=== PATIENT | male | born 1955 | race Caucasian/White ===

== ENCOUNTER 2020-05-14 13:58 | Emergency (ER) | payer OTHER ==
[2020-05-14 14:13] VITALS: BP 173/92; PULSE 78; O2SAT 97
[2020-05-14] MEDS ORDERED: ANTIVERT 25 MG PO ONE (14:47)
[2020-05-14] MEDS ORDERED: ZOFRAN ODT 4 MG PO ONE (14:47)
[2020-05-14] MEDS ORDERED: ANTIVERT 25 MG ONE (14:53)
--- NOTE | 2020-05-14 14:53 | ERPHSYRPT ---
- History of Present Illness Time Seen by Provider: 05/14/20 14:30 Patient Subjective Stated Complaint: Dizziness Triage Nursing Assessment: Patient ambulated back to ED and transferred self to chair. Patient feels better sitting in bedside chair. Patient A+O X 3. Patient's skin pink, warm and dry. Patient states he has a sinus infection and feels like it has went into his ears. Patient states he is dizzy. Patient states is nauseated and did take a dramanine, but vomited it up. Patient denies pain or discomfort. Physician History: 64 years old male with history of recurrent sinus infections with multiple surgeries in the past presented in the ER with sinus congestion and pressure for the last 5 days with progressive worsening. Patient reports it feels like he has bilateral ear pressure is now, feels stopped up and since morning he is feeling dizziness whenever he tries to get up/walk. Patient described this as a spinning sensation with movements of his head and it takes a while after standing still it goes away. Patient reports having similar symptoms 3-4 times in 1 year time which initially starts with sinusitis followed by ear pressure and dizziness. Denies any headache, visual symptoms, difficulty speech, numbness tingling or focal weakness. Denies any chest pain palpitations, shortness of breath, cough fever or chills. Does have postnasal drip. Patient took [id number] dizziness medication which made him more nauseated. Timing/Duration: day(s) (5), intermittent, worse Cough Quality/Degree: no cough Possible Cause: occasional episodes Modifying Factors: Improves With: activity, lying down, rest Associated Symptoms: dizziness, earache, facial pain, nasal congestion, nasal drainage, sinus infection, No fever, No chills, No chest pain/soreness, No cough, No headache, No lightheadedness, No muscle aches, No shortness of breath, No sore throat, No wheezing Allergies/Adverse Reactions: morphine Allergy (Verified 05/14/20 14:04) Patient states Hypotension Hx Influenza Vaccination/Date Given: No Hx Pneumococcal Vaccination/Date Given: No Immunizations Up to Date: Yes Travel Risk - International Travel Have you traveled outside of the country in past 3 weeks: No - Coronavirus Screening Close contact with a COVID-19 positive Pt in past 14-21 Days: No - Review of Systems Constitutional: No Symptoms Eyes: No Symptoms Ears, Nose, & Throat: Ear Pain, Nose Congestion, Sinus Drainage Respiratory: No Symptoms Cardiac: No Symptoms Abdominal/Gastrointestinal: Nausea Genitourinary Symptoms: No Symptoms Musculoskeletal: No Symptoms Neurological: Dizziness Psychological: No Symptoms Endocrine: No Symptoms Hematologic/Lymphatic: No Symptoms Immunological/Allergic: No Symptoms - Past Medical History Pertinent Past Medical History: Yes Neurological History: No Pertinent History ENT History: No Pertinent History Cardiac History: High Cholesterol, Hypertension, Myocardial Infarction (ND) Respiratory History: No Pertinent History Endocrine Medical History: No Pertinent History Musculoskeletal History: Arthritis GI Medical History: Ulcer History: No Pertinent History Psycho-Social History: No Pertinent History Male Reproductive Disorders: No Pertinent History - Past Surgical History Past Surgical History: Yes Neuro Surgical History: No Pertinent History Cardiac: No Pertinent History Respiratory: No Pertinent History Gastrointestinal: Hernia Repair Genitourinary: No Pertinent History Musculoskeletal: Orthopedic Surgery Male Surgical History: No Pertinent History Other Surgical History: Right Knee, Left wrist, Neck surgery, Sinus surgery - Social History Smoking Status: Never smoker Exposure to second hand smoke: No Drug Use: none Patient Lives Alone: No - Nursing Vital Signs Nursing Vital Signs: Initial Vital Signs Temperature 98.5 F 05/14/20 14:06 Pulse Rate 78 05/14/20 14:06 Respiratory Rate 18 05/14/20 14:06 Blood Pressure 173/92 05/14/20 14:06 O2 Sat by Pulse Oximetry 97 05/14/20 14:06 Pain Scale Pain Intensity 0 - Physical Exam General Appearance: no apparent distress, alert Eye Exam: PERRL/EOMI, eyes nml inspection Ears, Nose, Throat Exam: normal ENT inspection, TMs normal, pharyngeal erythema Neck Exam: normal inspection, non-tender, supple, full range of motion Respiratory Exam: normal breath sounds, lungs clear Cardiovascular Exam: regular rate/rhythm, normal heart sounds Gastrointestinal/Abdomen Exam: soft, normal bowel sounds, No tenderness Back Exam: normal inspection Extremity Exam: normal inspection, normal range of motion Neurologic Exam: alert, oriented x 3, 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, 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 II-XII nml as tested, normal mood/affect, nml cerebellar function, nml station & gait, sensation nml Skin Exam: normal color SpO2 Interpretation: normal SpO2: 97 O2 Delivery: Room Air - Course Nursing assessment & vital signs reviewed: Yes Ordered Tests: Medication Summary Discontinued Medications Generic Name Dose Route Start Last Admin Trade Name Freq PRN Reason Stop Dose Admin Meclizine HCl 25 mg 05/14/20 14:47 05/14/20 14:54 Antivert 25 Mg PO 05/14/20 14:48 25 mg STAT ONE Administration Meclizine HCl Confirm 05/14/20 14:53 Antivert 25 Mg Administered 05/14/20 14:54 Dose 25 mg .ROUTE .STK-MED ONE Ondansetron HCl 8 mg 05/14/20 14:47 05/14/20 14:55 Zofran Odt 4 Mg PO 05/14/20 14:48 8 mg STAT ONE Administration Ondansetron HCl Confirm 05/14/20 14:54 Zofran Odt 4 Mg Administered 05/14/20 14:55 Dose 8 mg .ROUTE .STK-MED ONE - Progress Progress: improved, re-examined Air Movement: good Progress Note: 05/14/20 64 years old is evaluated in the ER for sinus congestion and stopped up ears. Patient has nonfocal neuro exam. Had similar symptoms in the past as well which resolved with antibiotics and symptomatic treatment. I have offered him CT head and other work-up but he refused and states that same symptoms and do not think he needs any work-up. I think this would be reasonable as patient does not report any signs symptoms different than usual. I have given him meclizine and Zofran here. I will start him on Augmentin for sinusitis. Discussed signs symptoms of worsening needing return to ER which he seems understanding. Stable for discharge with outpatient follow-up. Blood Culture(s) Obtained: No Antibiotics given: Yes Counseled pt/family regarding: diagnosis, need for follow-up - Departure Departure Disposition: Home Clinical Impression: Vertigo Sinusitis Qualifiers: Sinusitis location: unspecified location Chronicity: acute Recurrence: recurrent Qualified Code(s): J01.91 - Acute recurrent sinusitis, unspecified Condition: Stable Critical Care Time: No Referrals: [facility] [Primary Care Provider] - TERRIE DUBON MD [ACTIVE STAFF] - (1-2 days for re evaluation) Instructions: Sinusitis, Adult (DC), Vertigo (a Type of Dizziness) (DC) Additional Instructions: Follow-up with primary care/ENT for reevaluation. Return to ER for worsening dizziness/vertigo or if develop any other neuro symptoms like numbness tingling weakness etc. Prescriptions: Ondansetron ODT 4 MG [Zofran Odt 4 mg] 4 mg PO Q6H PRN PRN #10 tab.rapdis PRN Reason: Vomiting Meclizine HCl 25 mg [Antivert 25 mg] 25 mg PO Q8H PRN PRN #14 tablet PRN Reason: Dizziness Amox Tr/Potass Clav. 875 mg [Augmentin 875-125 Tablet] 875 mg PO BID 10 Days #20 tablet
[2020-05-14] MEDS ORDERED: ZOFRAN ODT 4 MG ONE (14:54)
== END 2020-05-14 16:02 | disposition home or self-care (01) ==
LOC: ED 13:58
DX: R42 Dizziness and giddiness (principal); R11.0 Nausea; E78.00 Pure hypercholesterolemia, unspecified; I10 Essential (primary) hypertension; I25.2 Old myocardial infarction
CPT/HCPCS: 99283; Q0162; A9270-GY